=== PATIENT | female | born 1980 | race Caucasian/White ===

== ENCOUNTER 2021-02-09 14:06 | Inpatient (IN) | payer BC ==
[~2021-02-09] VITALS: Ht 170.2 cm; Wt 81.8 kg
[2021-02-09 15:10] LABS: IMMATURE GRANULOCYTES 1.7 % (0.0-5.0); MEAN CELL VOLUME 84.7 fL CALC (80.0-100.0); MEAN CORPUSCULAR HGB 28.3 pG CALC (26.0-32.0); MEAN CORPUSCULAR HGB CONC 33.4 g/dL CAL (32.0-36.0); NEUT# 1.98 thou/uL (2.00-7.15); RED BLOOD COUNT 3.78 mill/uL (4.20-5.60)
[2021-02-09 15:11] LABS: HEMOGLOBIN 10.7 g/dl (12.0-16.0)
[2021-02-09 15:18] LABS: ALBUMIN 3.7 g/dL (3.2-5.0); ALKALINE PHOSPHATASE 46 u/l (38-126); BUN 8 mg/dL (7-17); BUN/CREATININE RATIO 13 (12-20 (CALC)); CHLORIDE 94 mmol/l (95-108); CREATININE 0.7 mg/dL (0.5-1.0); GFR > 60 ML/MIN (>=60 (CALC)); GFR FOR AFR.AMER. > 60 ML/MIN (>=60 (CALC)); LIPASE 622 u/l (23-300); MAGNESIUM 1.8 mg/dL (1.6-2.3); POTASSIUM 3.2 mmol/l (3.5-5.1); TOTAL PROTEIN 7.1 g/dL (6.3-8.2)
[2021-02-09 15:20] LABS: ANION GAP 12 (6-22 (CALC)); BILIRUBIN, TOTAL 0.7 mg/dL (0.0-1.4); CARBON DIOXIDE 26 mmol/l (22-30); SGOT/AST 34 u/l (14-36); SODIUM 129 mmol/l (137-146)
[2021-02-09 15:25] LABS: ACT PARTIAL THROMBO TIME 29.6 SECONDS (20.0-32.5); INTERNATIONAL NORMALIZED RATIO 1.1 RATIO (0.7-1.3); PROTHROMBIN TIME 11.2 SECONDS (9.0-12.5)
[2021-02-09 15:29] LABS: D-DIMER 1.29 mg/L (0.19-0.60)
[2021-02-09 17:04] LABS: URINE BILIRUBIN - DIPSTICK NEGATIVE (NEGATIVE); URINE BLOOD DIPSTICK LARGE (NEGATIVE); URINE GLUCOSE - DIPSTICK NEGATIVE (NEGATIVE); URINE KETONE NEGATIVE (NEGATIVE); URINE LEUK ESTERASE NEGATIVE (NEGATIVE); URINE PROTEIN - DIPSTICK 100 mg/dL (NEG-TRACE); URINE SPECIFIC GRAVITY <=1.005; URINE UROBILINOGEN - DIPSTICK 0.2 E.U./dL (0.2)
[2021-02-09] MEDS ORDERED: BIRTH CONTROL PILL (17:05)
[2021-02-09 17:06] LABS: URINE NITRITE - DIPSTICK NEGATIVE (Negative)
[2021-02-09 17:07] LABS: URINE COLOR RED; URINE RBC >100 RBC/hpf (0-5); URINE SQUAMOUS EPITHELIAL CELL FEW EPI/hpf (0-FEW)
[2021-02-09 18:55] VITALS: BP 116/67
[2021-02-10] VITALS: BP 134/78
[2021-02-10 04:00] VITALS: BP 140/75
[2021-02-10 05:46] LABS: HEMATOCRIT 31.4 % (37.0-47.0); HEMOGLOBIN 10.2 g/dl (12.0-16.0); IMMATURE GRANULOCYTES 1.6 % (0.0-5.0); MEAN CORPUSCULAR HGB 27.9 pG CALC (26.0-32.0); MEAN CORPUSCULAR HGB CONC 32.5 g/dL CAL (32.0-36.0); NEUT# 3.21 thou/uL (2.00-7.15); RED BLOOD COUNT 3.65 mill/uL (4.20-5.60); RED CELL DISTRI WIDTH 12.9 % (11.5-15.5)
[2021-02-10 06:10] LABS: ANION GAP 10 (6-22 (CALC)); BUN 10 mg/dL (7-17); BUN/CREATININE RATIO 17 (12-20 (CALC)); CARBON DIOXIDE 26 mmol/l (22-30); CHLORIDE 100 mmol/l (95-108); CREATININE 0.6 mg/dL (0.5-1.0); GFR > 60 ML/MIN (>=60 (CALC)); GFR FOR AFR.AMER. > 60 ML/MIN (>=60 (CALC)); POTASSIUM 3.6 mmol/l (3.5-5.1); SODIUM 133 mmol/l (137-146)
[2021-02-10 06:23] LABS: C-REACTIVE PROTEIN 18.3 mg/dL (0-0.9)
[2021-02-10 08:00] VITALS: BP 142/74
[2021-02-10 11:42] VITALS: BP 131/75
[2021-02-10 15:15] VITALS: BP 136/80
[2021-02-10 20:28] VITALS: BP 134/80
[2021-02-11 00:51] VITALS: BP 128/79
[2021-02-11 05:30] VITALS: BP 143/85
[2021-02-11 06:02] LABS: HEMATOCRIT 31.4 % (37.0-47.0); HEMOGLOBIN 10.3 g/dl (12.0-16.0); IMMATURE GRANULOCYTES 1.7 % (0.0-5.0); MEAN CELL VOLUME 84.4 fL CALC (80.0-100.0); MEAN CORPUSCULAR HGB 27.7 pG CALC (26.0-32.0); MEAN CORPUSCULAR HGB CONC 32.8 g/dL CAL (32.0-36.0); NEUT# 3.2 thou/uL (2.00-7.15); RED BLOOD COUNT 3.72 mill/uL (4.20-5.60); RED CELL DISTRI WIDTH 13.5 % (11.5-15.5)
[2021-02-11 06:04] LABS: ALKALINE PHOSPHATASE 40 u/l (38-126); ANION GAP 9 (6-22 (CALC)); BILIRUBIN, TOTAL 0.5 mg/dL (0.0-1.4); BUN 12 mg/dL (7-17); BUN/CREATININE RATIO 21 (12-20 (CALC)); C-REACTIVE PROTEIN 6.6 mg/dL (0-0.9); CARBON DIOXIDE 27 mmol/l (22-30); CHLORIDE 104 mmol/l (95-108); CREATININE 0.6 mg/dL (0.5-1.0); GFR > 60 ML/MIN (>=60 (CALC)); GFR FOR AFR.AMER. > 60 ML/MIN (>=60 (CALC)); POTASSIUM 3.6 mmol/l (3.5-5.1); SGOT/AST 31 u/l (14-36); SODIUM 135 mmol/l (137-146); TOTAL PROTEIN 5.7 g/dL (6.3-8.2)
[2021-02-11 06:31] LABS: ALBUMIN 2.9 g/dL (3.2-5.0)
[2021-02-11 08:12] VITALS: BP 143/79
[2021-02-11 10:10] VITALS: BP 119/68
[2021-02-11 15:00] VITALS: BP 130/81
[2021-02-11 19:00] VITALS: BP 139/86
[2021-02-12] VITALS: BP 126/74
[2021-02-12 04:00] VITALS: BP 123/82
[2021-02-12 07:40] VITALS: BP 144/82
[2021-02-12 11:19] VITALS: BP 138/82
[2021-02-12] MEDS ORDERED: DEXAMETHASON6 MG PO (12:10)
[2021-02-12] MEDS ORDERED: ASPIRIN ADULT325 MG PO (12:11)
[2021-02-12] MEDS ORDERED: ZITHROMAX250 MG PO (12:11)
== END 2021-02-12 14:19 | disposition home or self-care (01) | DRG 177 ==
LOC: ED 14:06 → ED-I 17:00 → ED 17:12 → MS2 17:13
PROVIDERS: Nurse Practitioner Family; ADMIT Internal Medicine; ATTEND Internal Medicine
PROC: XW033E5 Introduction of Remdesivir Anti-infective into Peripheral Vein, Percutaneous Approach, New Technology Group 5 (ICD-10-PCS; principal; 2021-02-10)
DX: U07.1 COVID-19 (principal); J12.82 Pneumonia due to coronavirus disease 2019; J96.01 Acute respiratory failure with hypoxia
CPT/HCPCS: J1650; Q9967